=== PATIENT | female | born 2000 | race Caucasian/White ===

== ENCOUNTER 2022-02-24 07:34 | Outpatient (CLI) | payer OTHER, SELFPAY ==
[2022-02-24 07:41] LABS: Ur HCG Qualitative* Negative (Negative)
== END 2022-02-24 07:35 | disposition home or self-care (01) ==
LOC: FRMREF 07:35
PROVIDERS: PCP Physician Assistant Medical; Visit Provider Dermatology
DX: Z79.899 Other long term (current) drug therapy (principal)
CPT/HCPCS: 81025

== ENCOUNTER 2022-10-09 09:00 | Outpatient (CLI) | payer SELFPAY ==
[2022-10-09 14:02] LABS: Chlamydia DNA Amplified* NOT DETECTED (No Detected); GC DNA Amplified* NOT DETECTED (No Detected)
== END 2022-10-09 09:01 | disposition home or self-care (01) ==
PROVIDERS: PCP Physician Assistant Medical; Visit Provider Physician Assistant
DX: Z11.3 Encounter for screening for infections with a predominantly sexual mode of transmission (principal)
CPT/HCPCS: 0353U; 86592; 86703; 86803; 87340; 87491; 87591